=== PATIENT | female | born 1970 | race Caucasian/White ===

== ENCOUNTER 2017-05-26 17:13 | Inpatient (IN) | payer OTHER ==
[2017-05-26 17:58] VITALS: BMI 37.8
--- NOTE | 2017-05-26 18:32 | HP ---
Admission ROS S - [facility] Chief Complaint: I WANT TO GO TO REHAB Allergies/Adverse Reactions: Allergies Allergy/AdvReac Type Severity Reaction Status Date / Time No Known Allergies Allergy Verified 05/26/17 17:44 History of Present Illness: 46 YEARS OLD FEMALE WITH LONG HISTORY OF OPIATE MARIJUANA NICOTINE DEPENDENCE HAS HIV AND POSITIVE PPD TREATED IS ADMITTED TO REHAB Exam Limitations: No Limitations - Ebola screening Have you traveled outside of the country in the last 21 days: No Have you had contact with anyone from an Ebola affected area: No Have you been sick,other than usual withdrawal symptoms: No Do you have a fever: No - Review of Systems Constitutional: Weight Stable EENT: reports: No Symptoms Reported Respiratory: reports: No Symptoms reported Cardiac: reports: No Symptoms Reported GI: reports: No Symptoms Reported : reports: No Symptoms Reported Musculoskeletal: reports: No Symptoms Reported Integumentary: reports: Change in Color (BOTH LEGS IV OPIATE) Neuro: reports: No Symptoms reported Endocrine: reports: No Symptoms Reported Hematology: reports: No Symptoms Reported Psychiatric: reports: Judgement Intact, Mood/Affect Appropiate, Orientated x3 Other Systems: Reviewed and Negative Patient History - Patient Medical History Hx Anemia: No Hx Asthma: No Hx Chronic Obstructive Pulmonary Disease (COPD): No Hx Cancer: No Hx Cardiac Disorders: No Hx Congestive Heart Failure: No Hx Hypertension: No Hx Hypercholesterolemia: No Hx Pacemaker: No HX Cerebrovascular Accident: No Hx Seizures: No Hx Dementia: No Hx Diabetes: No Hx Gastrointestinal Disorders: No Hx Liver Disease: No Hx Genitourinary Disorders: No Hx Sexually Transmitted Disorders: Yes Hx Renal Disease (ESRD): No Hx Thyroid Disease: No Hx Human Immunodeficiency Virus (HIV): Yes Hx Hepatitis C: Yes Hx Depression: Yes Hx Suicide Attempt: Yes (26 YEARS OLD CUTSELF) Hx Bipolar Disorder: No Hx Schizophrenia: No - Patient Surgical History Past Surgical History: Yes Hx Neurologic Surgery: No Hx Cataract Extraction: No Hx Cardiac Surgery: No Hx Lung Surgery: No Hx Breast Surgery: No Hx Breast Biopsy: No Hx Abdominal Surgery: No Hx Appendectomy: No Hx Cholecystectomy: No Hx Genitourinary Surgery: No Hx Section: No Hx Orthopedic Surgery: No Hx Hysterectomy: No Other Surgical History: LEFT OVARY REMOVED 1990/[facility]VP LESION REMOVAL ANUS 03/2017 Anesthesia Reaction: No - PPD History Previous Implant?: Yes Documented Results: Positive w/proof Implanted On Prior R Admission?: No PPD to be Administered?: No - Reproductive History Patient is a Female of Child Bearing Age (11 -55 yrs old): Yes Last Menstrual Period: 05/26/93 Patient : No - Smoking Cessation Smoking history: Current every day smoker Have you smoked in the past 12 months: Yes Aproximately how many cigarettes per day: 4 Cigars Per Day: 0 Hx Chewing Tobacco Use: No Initiated information on smoking cessation: Yes 'Breaking Loose' booklet given: 05/26/17 - Substance & Tx. History Hx Alcohol Use: No Hx Substance Use: Yes Substance Use Type: Marijuana, Opiates Hx Substance Use Treatment: Yes (2006) - Substances Abused Marijuana/Hashish Route: Smoking Frequency: 1-2 times per week Amount used: 1 BAG Age of first use: 9 Date of Last Use: 05/19/17 Heroin Route: Injection Frequency: Daily Amount used: 1 BAG Age of first use: 9 Date of Last Use: 05/25/17 Family Disease History - Family Disease History Family Disease History: Other: Father ( NO CONTACT), Mother (HIV ) Other Family History: ONLY CHILD Admission Physical Exam S - Vital Signs Vital Signs: Vital Signs - 24 hr 05/26/17 17:53 Temperature 97.5 F L Pulse Rate 70 Respiratory 20 Rate Blood Pressure 127/70 - Physical General Appearance: Yes: No Apparent Distress, Appropriately Dressed, Obese HEENTM: Yes: Hearing grossly Normal, Normal ENT Inspection, Normocephalic, Normal Voice Respiratory: Yes: Chest Non-Tender, Lungs Clear, Normal Breath Sounds, No Respiratory Distress, No Accessory Muscle Use Neck: Yes: Supple, Trachea in good position Breast: Yes: Breasts Symetrical Cardiology: Yes: Regular Rhythm, Regular Rate, S1, S2 Abdominal: Yes: Normal Bowel Sounds, Non Tender, Soft Genitourinary: Yes: Within Normal Limits Back: Yes: Normal Inspection Musculoskeletal: Yes: full range of Motion, Gait Steady Extremities: Yes: Normal Range of Motion, Non-Tender, Other (IV OPIATE BOTH LEGS ) Neurological: Yes: Fully Oriented, Alert, Motor Strength 5/5, Normal Mood/Affect , Normal Response Integumentary: Yes: Warm, Track [place] Lymphatic: Yes: Within Normal Limits - Diagnostic (1) Cannabis dependence, uncomplicated Current Visit: Yes Status: Acute (2) HIV (human immunodeficiency virus infection) Current Visit: Yes Status: Chronic (3) Methadone maintenance therapy patient Current Visit: Yes Status: Chronic Comment: 50 MG VERIFICATION PENDING (4) Nicotine dependence Current Visit: Yes Status: Acute Qualifiers: Nicotine product type: cigarettes Substance use status: in withdrawal Qualified Code(s): F17.213 - Nicotine dependence, cigarettes, with withdrawal (5) Positive PPD, treated Current Visit: Yes Status: Resolved (6) Hepatitis C carrier Current Visit: Yes Status: Resolved Cleared for Admission [facility] - Detox or Rehab [facility] Level of Care: Observation Bed Detox Regimen/Protocol: Not Applicable Claeared for Rehab Admission: Yes [facility] Breath Alcohol Content Breath Alcohol Content: 0 Urine Pregancy Test - Result Urine Test Results: Negative- NO Line Present Urine Drug Screen - Results Drug Screen Negative: No Urine Drug Screen Results: THC-Marijuana, OPI-Opiates, MTD-Methadone
[2017-05-26] MEDS ORDERED: MAGNESIUM CITRATE 300 ML BOTTLE PO PRN (18:37)
[2017-05-26] MEDS ORDERED: ACETAMINOPHEN 325 MG TABLET (FP) PO PRN (18:37)
[2017-05-26] MEDS ORDERED: MENTHOL/PHENOL 1 EACH UD MM PRN (18:37)
[2017-05-26] MEDS ORDERED: diphenhydrAMINE HCL 50 MG CAPSULE PO PRN (18:37)
[2017-05-26] MEDS ORDERED: guaiFENesin/D-METHORPHAN HB 10 ML UNIT-DOSE CUPS PO PRN (18:37)
[2017-05-26] MEDS ORDERED: LOPERAMIDE HCL 2 MG CAPSULE PO PRN (18:37)
[2017-05-26] MEDS ORDERED: MAG HYDROX/AL HYDROX/SIMETH 30 ML UNIT-DOSE CUP PO PRN (18:37)
[2017-05-26] MEDS ORDERED: NICOTINE POLACRILEX 2 MG GUM BC PRN (18:37)
[2017-05-26] MEDS ORDERED: P-EPHED 60MG/TRIPROLIDI 2.5MG TABLET PO PRN (18:37)
[2017-05-26] MEDS: THIAMINE HCL 100 MG TABLET (FP) PO SCH (22:45)
[2017-05-27] MEDS ORDERED: METHADONE HCL 40 MG DISPERSABLE TABLET PO SCH (07:45)
[2017-05-27] MEDS ORDERED: METHADONE HCL 10 MG TABLET PO ONE (08:25)
--- NOTE | 2017-05-27 09:05 | EKG ---
Test Reason : Blood Pressure : / mmHG Vent. Rate : 071 BPM Atrial Rate : 071 BPM P-R Int : 124 ms QRS Dur : 082 ms QT Int : 422 ms P-R-T Axes : 076 058 055 degrees QTc Int : 458 ms NORMAL SINUS RHYTHM NORMAL ECG NO PREVIOUS ECGS AVAILABLE Confirmed by MARIETTA RENEE MD ([id number]) on 05/27/2017 9:05:29 AM Referred By: Confirmed By:MARIETTA RENEE MD
[2017-05-27] MEDS ORDERED: METHADONE HCL 5 MG TABLET ONE (09:30)
[2017-05-27] MEDS ORDERED: METHADONE 40 MG, METHADONE 15 MG PO ONE (09:30)
[2017-05-27] MEDS ORDERED: METHADONE HCL 40 MG DISPERSABLE TABLET ONE (09:30)
[2017-05-27 09:47] LABS: MCH 30.5 pg (25.7-33.7); MCHC 33.1 g/dl (32.0-36.0); MEAN CELL VOLUME 92.2 fl (80-96); MEAN PLT VOLUME 10.4 fl (7.5-11.1); PLATELET COUNT 79 K/MM3 (134-434); RDW 13.1 % (11.6-15.6); WHITE BLOOD COUNT 4.2 K/mm3 (4.0-10.0)
[2017-05-27] MEDS: PRENATAL VITAMINS W/ FOLIC ACID TABLET (FP) PO SCH (10:14)
[2017-05-27] MEDS: NICOTINE 14 MG/24 HOURS TOPICAL PATCH TD SCH (10:16)
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
[2017-05-27 10:48] LABS: ALBUMIN 3.2 g/dl (3.4-5.0); ANION GAP 5 (8-16); CO2 32 mmol/L (21-32); CREATININE 0.7 mg/dL (0.55-1.02); GLUCOSE,RANDOM 85 mg/dL (74-106); SGOT/AST 50 U/L (15-37); SGPT/ALT 63 U/L (12-78)
[2017-05-27 10:50] LABS: ALK PHOS 129 U/L (45-117); BILIRUBIN,TOTAL 0.6 mg/dL (0.2-1.0); TOT PROT 7.7 g/dl (6.4-8.2)
[2017-05-27] MEDS: RITONAVIR 100 MG TABLET PO SCH (12:22)
[2017-05-27] MEDS: EMTRICITABINE 200MG/TENOFOVIR 300MG PO SCH (12:22)
[2017-05-27] MEDS: ATAZANAVIR SO4 300 MG CAPSULE PO SCH (12:23)
[2017-05-27 17:50] LABS: URINE APPEARANCE SLCLOUDY; URINE BILIRUBIN NEGATIVE (NEGATIVE); URINE BLOOD NEGATIVE (NEGATIVE); URINE COLOR YELLOW; URINE GLUCOSE (UA) NEGATIVE (NEGATIVE); URINE KETONE NEGATIVE (NEGATIVE); URINE LEUK ESTERASE TRACE (NEGATIVE); URINE NITRITE NEGATIVE (NEGATIVE); URINE PROTEIN NEGATIVE (NEGATIVE)
[2017-05-27 17:58] LABS: URINE BACTERIA FEW /hpf (NONE SEEN); URINE HYALINE CAST 5 /lpf; URINE MUCUS RARE; URINE RBC 3 /hpf (0-3); URINE WBC 6 /hpf (3-5)
[2017-05-27] MEDS: THIAMINE HCL 100 MG TABLET (FP) PO SCH (21:25)
[2017-05-27] MEDS: MIRTAZAPINE 30 MG TABLET (FP) PO SCH (21:26)
[2017-05-28] MEDS ORDERED: METHADONE HCL 40 MG DISPERSABLE TABLET ONE (06:18)
[2017-05-28] MEDS ORDERED: METHADONE HCL 5 MG TABLET ONE (06:18)
[2017-05-28] MEDS: METHADONE 40 MG, METHADONE 15 MG PO SCH (06:26)
[2017-05-28] MEDS: RITONAVIR 100 MG TABLET PO SCH (08:04)
[2017-05-28] MEDS: EMTRICITABINE 200MG/TENOFOVIR 300MG PO SCH (08:04)
[2017-05-28] MEDS: ATAZANAVIR SO4 300 MG CAPSULE PO SCH (08:05)
[2017-05-28] MEDS: PRENATAL VITAMINS W/ FOLIC ACID TABLET (FP) PO SCH (09:42)
[2017-05-28] MEDS: NICOTINE 14 MG/24 HOURS TOPICAL PATCH TD SCH (09:42)
[2017-05-28] MEDS: MAGNESIUM HYDROX 2400MG/30ML ORAL SUSPENSION 30 ML CUP PO PRN (17:08)
[2017-05-28] MEDS: IBUPROFEN 400 MG TABLET (FP) PO PRN (17:09)
[2017-05-28] MEDS: THIAMINE HCL 100 MG TABLET (FP) PO SCH (21:22)
[2017-05-28] MEDS: MIRTAZAPINE 30 MG TABLET (FP) PO SCH (21:22)
[2017-05-29] MEDS ORDERED: METHADONE HCL 5 MG TABLET ONE (03:12)
[2017-05-29] MEDS ORDERED: METHADONE HCL 40 MG DISPERSABLE TABLET ONE (03:13)
[2017-05-29] MEDS: METHADONE 40 MG, METHADONE 15 MG PO SCH (06:17)
[2017-05-29] MEDS: EMTRICITABINE 200MG/TENOFOVIR 300MG PO SCH (07:50)
[2017-05-29] MEDS: ATAZANAVIR SO4 300 MG CAPSULE PO SCH (07:50)
[2017-05-29] MEDS: RITONAVIR 100 MG TABLET PO SCH (07:50)
[2017-05-29] MEDS ORDERED: PT OWN MED DRAWER 7, Y5N ONE (07:51)
[2017-05-29] MEDS: PRENATAL VITAMINS W/ FOLIC ACID TABLET (FP) PO SCH (09:51)
[2017-05-29] MEDS: NICOTINE 14 MG/24 HOURS TOPICAL PATCH TD SCH (09:51)
[2017-05-29] MEDS: THIAMINE HCL 100 MG TABLET (FP) PO SCH (21:16)
[2017-05-29] MEDS: MIRTAZAPINE 30 MG TABLET (FP) PO SCH (21:16)
[2017-05-30] MEDS ORDERED: METHADONE HCL 10 MG TABLET ONE (03:24)
[2017-05-30] MEDS ORDERED: METHADONE HCL 5 MG TABLET ONE (03:24)
[2017-05-30] MEDS ORDERED: METHADONE HCL 40 MG DISPERSABLE TABLET ONE (03:24)
[2017-05-30] MEDS: METHADONE PO SCH (06:29)
[2017-05-30] MEDS: ATAZANAVIR SO4 300 MG CAPSULE PO SCH (07:51)
[2017-05-30] MEDS: RITONAVIR 100 MG TABLET PO SCH (07:51)
[2017-05-30] MEDS: EMTRICITABINE 200MG/TENOFOVIR 300MG PO SCH (07:51)
[2017-05-30] MEDS: NICOTINE 14 MG/24 HOURS TOPICAL PATCH TD SCH (10:16)
[2017-05-30] MEDS: PRENATAL VITAMINS W/ FOLIC ACID TABLET (FP) PO SCH (10:16)
[2017-05-30] MEDS: DOCUSATE SODIUM 100 MG CAPSULE (FP) PO SCH ×2 (16:23→21:22)
[2017-05-30] MEDS: HYDROCORTISONE 1% TOPICAL CREAM 30 GM TUBE TP SCH ×3 (16:23→21:24)
[2017-05-30] MEDS: MIRTAZAPINE 30 MG TABLET (FP) PO SCH (21:22)
[2017-05-30] MEDS: THIAMINE HCL 100 MG TABLET (FP) PO SCH (21:22)
[2017-05-31] MEDS ORDERED: METHADONE HCL 5 MG TABLET ONE (05:55)
[2017-05-31] MEDS ORDERED: METHADONE HCL 40 MG DISPERSABLE TABLET ONE (05:56)
[2017-05-31] MEDS ORDERED: METHADONE HCL 10 MG TABLET ONE (05:56)
[2017-05-31] MEDS ORDERED: PT OWN MED DRAWER 7, Y5N ONE ×3 (05:57→13:23)
[2017-05-31] MEDS: METHADONE PO SCH (06:42)
[2017-05-31] MEDS: DOCUSATE SODIUM 100 MG CAPSULE (FP) PO SCH ×3 (06:43→21:21)
[2017-05-31] MEDS: RITONAVIR 100 MG TABLET PO SCH (08:26)
[2017-05-31] MEDS: EMTRICITABINE 200MG/TENOFOVIR 300MG PO SCH (08:26)
[2017-05-31] MEDS: ATAZANAVIR SO4 300 MG CAPSULE PO SCH (08:26)
[2017-05-31] MEDS: NICOTINE 14 MG/24 HOURS TOPICAL PATCH TD SCH (10:13)
[2017-05-31] MEDS: PRENATAL VITAMINS W/ FOLIC ACID TABLET (FP) PO SCH (10:13)
[2017-05-31] MEDS: HYDROCORTISONE 1% TOPICAL CREAM 30 GM TUBE TP SCH ×4 (10:14→21:21)
[2017-05-31] MEDS: MIRTAZAPINE 30 MG TABLET (FP) PO SCH (21:21)
[2017-05-31] MEDS: THIAMINE HCL 100 MG TABLET (FP) PO SCH (21:21)
[2017-06-01] MEDS ORDERED: METHADONE HCL 10 MG TABLET ONE (03:31)
[2017-06-01] MEDS ORDERED: METHADONE HCL 5 MG TABLET ONE (03:31)
[2017-06-01] MEDS ORDERED: METHADONE HCL 40 MG DISPERSABLE TABLET ONE (03:31)
[2017-06-01] MEDS: DOCUSATE SODIUM 100 MG CAPSULE (FP) PO SCH ×3 (06:30→21:20)
[2017-06-01] MEDS: METHADONE PO SCH (06:30)
[2017-06-01] MEDS: RITONAVIR 100 MG TABLET PO SCH (07:52)
[2017-06-01] MEDS: EMTRICITABINE 200MG/TENOFOVIR 300MG PO SCH (07:52)
[2017-06-01] MEDS: ATAZANAVIR SO4 300 MG CAPSULE PO SCH (07:52)
[2017-06-01] MEDS: PRENATAL VITAMINS W/ FOLIC ACID TABLET (FP) PO SCH (09:59)
[2017-06-01] MEDS: NICOTINE 14 MG/24 HOURS TOPICAL PATCH TD SCH (09:59)
[2017-06-01] MEDS: HYDROCORTISONE 1% TOPICAL CREAM 30 GM TUBE TP SCH ×4 (09:59→21:22)
[2017-06-01] MEDS: MIRTAZAPINE 30 MG TABLET (FP) PO SCH (21:20)
[2017-06-01] MEDS: THIAMINE HCL 100 MG TABLET (FP) PO SCH (21:20)
[2017-06-02] MEDS ORDERED: METHADONE HCL 10 MG TABLET ONE (03:19)
[2017-06-02] MEDS ORDERED: METHADONE HCL 40 MG DISPERSABLE TABLET ONE (03:19)
[2017-06-02] MEDS ORDERED: METHADONE HCL 5 MG TABLET ONE (03:19)
[2017-06-02] MEDS: DOCUSATE SODIUM 100 MG CAPSULE (FP) PO SCH ×3 (06:28→21:22)
[2017-06-02] MEDS: METHADONE PO SCH (06:28)
[2017-06-02] MEDS: EMTRICITABINE 200MG/TENOFOVIR 300MG PO SCH (07:53)
[2017-06-02] MEDS: ATAZANAVIR SO4 300 MG CAPSULE PO SCH (07:53)
[2017-06-02] MEDS: RITONAVIR 100 MG TABLET PO SCH (07:53)
[2017-06-02] MEDS ORDERED: PT OWN MED DRAWER 7, Y5N ONE ×2 (07:55→13:24)
[2017-06-02] MEDS: PRENATAL VITAMINS W/ FOLIC ACID TABLET (FP) PO SCH (10:35)
[2017-06-02] MEDS: HYDROCORTISONE 1% TOPICAL CREAM 30 GM TUBE TP SCH ×4 (10:35→21:23)
[2017-06-02] MEDS: NICOTINE 14 MG/24 HOURS TOPICAL PATCH TD SCH (10:35)
[2017-06-02] MEDS: MIRTAZAPINE 30 MG TABLET (FP) PO SCH (21:22)
[2017-06-02] MEDS: THIAMINE HCL 100 MG TABLET (FP) PO SCH (21:22)
[2017-06-02] MEDS: IBUPROFEN 400 MG TABLET (FP) PO PRN (22:14)
[2017-06-03] MEDS ORDERED: METHADONE HCL 5 MG TABLET ONE (03:27)
[2017-06-03] MEDS ORDERED: METHADONE HCL 10 MG TABLET ONE (03:27)
[2017-06-03] MEDS ORDERED: METHADONE HCL 40 MG DISPERSABLE TABLET ONE (03:28)
[2017-06-03] MEDS: METHADONE PO SCH (06:16)
[2017-06-03] MEDS: DOCUSATE SODIUM 100 MG CAPSULE (FP) PO SCH ×3 (06:17→21:42)
[2017-06-03] MEDS: RITONAVIR 100 MG TABLET PO SCH (07:41)
[2017-06-03] MEDS: EMTRICITABINE 200MG/TENOFOVIR 300MG PO SCH (07:41)
[2017-06-03] MEDS: ATAZANAVIR SO4 300 MG CAPSULE PO SCH (07:41)
[2017-06-03] MEDS ORDERED: PT OWN MED DRAWER 7, Y5N ONE ×3 (07:53→19:42)
[2017-06-03] MEDS: PRENATAL VITAMINS W/ FOLIC ACID TABLET (FP) PO SCH (10:13)
[2017-06-03] MEDS: NICOTINE 14 MG/24 HOURS TOPICAL PATCH TD SCH (10:14)
[2017-06-03] MEDS: IBUPROFEN 400 MG TABLET (FP) PO PRN ×2 (10:15→21:43)
[2017-06-03] MEDS: HYDROCORTISONE 1% TOPICAL CREAM 30 GM TUBE TP SCH ×4 (10:15→21:42)
[2017-06-03] MEDS: THIAMINE HCL 100 MG TABLET (FP) PO SCH (21:42)
[2017-06-03] MEDS: MIRTAZAPINE 30 MG TABLET (FP) PO SCH (21:42)
[2017-06-04] MEDS ORDERED: METHADONE HCL 5 MG TABLET ONE (05:56)
[2017-06-04] MEDS ORDERED: METHADONE HCL 40 MG DISPERSABLE TABLET ONE (05:57)
[2017-06-04] MEDS ORDERED: PT OWN MED DRAWER 7, Y5N ONE ×2 (05:57→08:49)
[2017-06-04] MEDS ORDERED: METHADONE HCL 10 MG TABLET ONE (05:57)
[2017-06-04] MEDS: METHADONE PO SCH (06:32)
[2017-06-04] MEDS: DOCUSATE SODIUM 100 MG CAPSULE (FP) PO SCH ×3 (06:32→21:20)
[2017-06-04] MEDS: EMTRICITABINE 200MG/TENOFOVIR 300MG PO SCH (08:30)
[2017-06-04] MEDS: RITONAVIR 100 MG TABLET PO SCH (08:30)
[2017-06-04] MEDS: ATAZANAVIR SO4 300 MG CAPSULE PO SCH (08:30)
[2017-06-04] MEDS: NICOTINE 14 MG/24 HOURS TOPICAL PATCH TD SCH (09:56)
[2017-06-04] MEDS: PRENATAL VITAMINS W/ FOLIC ACID TABLET (FP) PO SCH (09:56)
[2017-06-04] MEDS: HYDROCORTISONE 1% TOPICAL CREAM 30 GM TUBE TP SCH ×4 (09:57→21:21)
[2017-06-04] MEDS: THIAMINE HCL 100 MG TABLET (FP) PO SCH (21:20)
[2017-06-04] MEDS: MIRTAZAPINE 30 MG TABLET (FP) PO SCH (21:20)
[2017-06-05] MEDS ORDERED: METHADONE HCL 10 MG TABLET ONE (05:54)
[2017-06-05] MEDS ORDERED: METHADONE HCL 5 MG TABLET ONE (05:54)
[2017-06-05] MEDS ORDERED: METHADONE HCL 40 MG DISPERSABLE TABLET ONE (05:55)
[2017-06-05] MEDS: DOCUSATE SODIUM 100 MG CAPSULE (FP) PO SCH ×3 (06:40→21:26)
[2017-06-05] MEDS: METHADONE PO SCH (06:40)
[2017-06-05] MEDS: ATAZANAVIR SO4 300 MG CAPSULE PO SCH (07:03)
[2017-06-05] MEDS: RITONAVIR 100 MG TABLET PO SCH (07:03)
[2017-06-05] MEDS: EMTRICITABINE 200MG/TENOFOVIR 300MG PO SCH (07:03)
[2017-06-05] MEDS ORDERED: PT OWN MED DRAWER 7, Y5N ONE ×2 (08:42→12:19)
[2017-06-05] MEDS: PRENATAL VITAMINS W/ FOLIC ACID TABLET (FP) PO SCH (09:45)
[2017-06-05] MEDS: NICOTINE 14 MG/24 HOURS TOPICAL PATCH TD SCH (09:46)
[2017-06-05] MEDS: HYDROCORTISONE 1% TOPICAL CREAM 30 GM TUBE TP SCH ×4 (09:46→21:27)
[2017-06-05] MEDS: IBUPROFEN 400 MG TABLET (FP) PO PRN ×2 (13:04→18:54)
[2017-06-05] MEDS: MIRTAZAPINE 30 MG TABLET (FP) PO SCH (21:26)
[2017-06-05] MEDS: THIAMINE HCL 100 MG TABLET (FP) PO SCH (21:26)
[2017-06-06] MEDS ORDERED: METHADONE HCL 5 MG TABLET ONE (03:32)
[2017-06-06] MEDS ORDERED: METHADONE HCL 10 MG TABLET ONE (03:33)
[2017-06-06] MEDS ORDERED: METHADONE HCL 40 MG DISPERSABLE TABLET ONE (03:33)
[2017-06-06] MEDS: METHADONE PO SCH (06:43)
[2017-06-06] MEDS: DOCUSATE SODIUM 100 MG CAPSULE (FP) PO SCH ×3 (06:43→21:28)
[2017-06-06] MEDS: ATAZANAVIR SO4 300 MG CAPSULE PO SCH (07:50)
[2017-06-06] MEDS: EMTRICITABINE 200MG/TENOFOVIR 300MG PO SCH (07:50)
[2017-06-06] MEDS: RITONAVIR 100 MG TABLET PO SCH (07:50)
[2017-06-06] MEDS: PRENATAL VITAMINS W/ FOLIC ACID TABLET (FP) PO SCH (09:59)
[2017-06-06] MEDS: NICOTINE 14 MG/24 HOURS TOPICAL PATCH TD SCH (09:59)
[2017-06-06] MEDS: HYDROCORTISONE 1% TOPICAL CREAM 30 GM TUBE TP SCH ×4 (10:00→21:29)
[2017-06-06] MEDS ORDERED: PT OWN MED DRAWER 7, Y5N ONE (13:03)
[2017-06-06] MEDS: MIRTAZAPINE 30 MG TABLET (FP) PO SCH (21:28)
[2017-06-06] MEDS: THIAMINE HCL 100 MG TABLET (FP) PO SCH (21:29)
[2017-06-07] MEDS ORDERED: METHADONE HCL 5 MG TABLET ONE (03:20)
[2017-06-07] MEDS ORDERED: METHADONE HCL 40 MG DISPERSABLE TABLET ONE (03:21)
[2017-06-07] MEDS ORDERED: METHADONE HCL 10 MG TABLET ONE (03:21)
[2017-06-07] MEDS: DOCUSATE SODIUM 100 MG CAPSULE (FP) PO SCH ×3 (06:25→21:25)
[2017-06-07] MEDS: METHADONE PO SCH (06:25)
[2017-06-07] MEDS: EMTRICITABINE 200MG/TENOFOVIR 300MG PO SCH (08:29)
[2017-06-07] MEDS: RITONAVIR 100 MG TABLET PO SCH (08:29)
[2017-06-07] MEDS: ATAZANAVIR SO4 300 MG CAPSULE PO SCH (08:29)
[2017-06-07] MEDS: HYDROCORTISONE 1% TOPICAL CREAM 30 GM TUBE TP SCH ×4 (09:58→21:24)
[2017-06-07] MEDS: PRENATAL VITAMINS W/ FOLIC ACID TABLET (FP) PO SCH (09:58)
[2017-06-07] MEDS: NICOTINE 14 MG/24 HOURS TOPICAL PATCH TD SCH (09:58)
--- NOTE | 2017-06-07 10:35 | PN ---
[facility] Progress Note Note: c/o lower abdominal pain, she's on Methadone 50mg/d R/O fecal impaction KUB
[2017-06-07] MEDS: IBUPROFEN 400 MG TABLET (FP) PO PRN ×2 (13:08→21:27)
[2017-06-07] MEDS: COLLOIDAL OATMEAL 1 BAR EACH TP PRN (14:46)
[2017-06-07] MEDS: MAGNESIUM HYDROX 2400MG/30ML ORAL SUSPENSION 30 ML CUP PO PRN (14:47)
[2017-06-07] MEDS: THIAMINE HCL 100 MG TABLET (FP) PO SCH (21:24)
[2017-06-07] MEDS: MIRTAZAPINE 30 MG TABLET (FP) PO SCH (21:25)
[2017-06-08] MEDS ORDERED: METHADONE HCL 10 MG TABLET ONE (03:31)
[2017-06-08] MEDS ORDERED: METHADONE HCL 40 MG DISPERSABLE TABLET ONE (03:31)
[2017-06-08] MEDS ORDERED: METHADONE HCL 5 MG TABLET ONE (03:31)
[2017-06-08] MEDS: DOCUSATE SODIUM 100 MG CAPSULE (FP) PO SCH ×3 (06:38→21:25)
[2017-06-08] MEDS: METHADONE PO SCH (06:38)
[2017-06-08] MEDS: EMTRICITABINE 200MG/TENOFOVIR 300MG PO SCH (07:59)
[2017-06-08] MEDS: RITONAVIR 100 MG TABLET PO SCH (07:59)
[2017-06-08] MEDS: ATAZANAVIR SO4 300 MG CAPSULE PO SCH (08:00)
[2017-06-08] MEDS: NICOTINE 14 MG/24 HOURS TOPICAL PATCH TD SCH (10:01)
[2017-06-08] MEDS: HYDROCORTISONE 1% TOPICAL CREAM 30 GM TUBE TP SCH ×4 (10:01→21:26)
[2017-06-08] MEDS: PRENATAL VITAMINS W/ FOLIC ACID TABLET (FP) PO SCH (10:02)
[2017-06-08 17:19] LABS: URINE APPEARANCE SLCLOUDY; URINE BILIRUBIN NEGATIVE (NEGATIVE); URINE BLOOD NEGATIVE (NEGATIVE); URINE COLOR YELLOW; URINE GLUCOSE (UA) NEGATIVE (NEGATIVE); URINE KETONE NEGATIVE (NEGATIVE); URINE LEUK ESTERASE NEGATIVE (NEGATIVE); URINE NITRITE NEGATIVE (NEGATIVE); URINE PROTEIN NEGATIVE (NEGATIVE); URINE UROBILINOGEN NEGATIVE mg/dL (0.2-1.0)
[2017-06-08] MEDS: MIRTAZAPINE 30 MG TABLET (FP) PO SCH (21:25)
[2017-06-08] MEDS: THIAMINE HCL 100 MG TABLET (FP) PO SCH (21:25)
[2017-06-09] MEDS ORDERED: METHADONE HCL 5 MG TABLET ONE (03:20)
[2017-06-09] MEDS ORDERED: METHADONE HCL 40 MG DISPERSABLE TABLET ONE (03:21)
[2017-06-09] MEDS ORDERED: METHADONE HCL 10 MG TABLET ONE (03:21)
[2017-06-09] MEDS: METHADONE PO SCH (06:16)
[2017-06-09] MEDS: DOCUSATE SODIUM 100 MG CAPSULE (FP) PO SCH ×3 (06:17→21:31)
[2017-06-09] MEDS: ATAZANAVIR SO4 300 MG CAPSULE PO SCH (07:54)
[2017-06-09] MEDS: EMTRICITABINE 200MG/TENOFOVIR 300MG PO SCH (07:54)
[2017-06-09] MEDS: RITONAVIR 100 MG TABLET PO SCH (07:54)
[2017-06-09] MEDS ORDERED: PT OWN MED DRAWER 7, Y5N ONE (08:43)
[2017-06-09] MEDS: NICOTINE 14 MG/24 HOURS TOPICAL PATCH TD SCH (09:58)
[2017-06-09] MEDS: HYDROCORTISONE 1% TOPICAL CREAM 30 GM TUBE TP SCH ×4 (09:58→21:32)
[2017-06-09] MEDS: PRENATAL VITAMINS W/ FOLIC ACID TABLET (FP) PO SCH (09:58)
[2017-06-09] MEDS: MIRTAZAPINE 30 MG TABLET (FP) PO SCH (21:31)
[2017-06-09] MEDS: THIAMINE HCL 100 MG TABLET (FP) PO SCH (21:32)
[2017-06-10] MEDS ORDERED: METHADONE HCL 5 MG TABLET ONE (05:59)
[2017-06-10] MEDS ORDERED: METHADONE HCL 10 MG TABLET ONE (05:59)
[2017-06-10] MEDS ORDERED: METHADONE HCL 40 MG DISPERSABLE TABLET ONE (06:00)
[2017-06-10] MEDS ORDERED: PT OWN MED DRAWER 7, Y5N ONE ×2 (06:00→08:38)
[2017-06-10] MEDS: METHADONE PO SCH (07:21)
[2017-06-10] MEDS: RITONAVIR 100 MG TABLET PO SCH (07:22)
[2017-06-10] MEDS: DOCUSATE SODIUM 100 MG CAPSULE (FP) PO SCH ×3 (07:22→21:28)
[2017-06-10] MEDS: EMTRICITABINE 200MG/TENOFOVIR 300MG PO SCH (07:22)
[2017-06-10] MEDS: ATAZANAVIR SO4 300 MG CAPSULE PO SCH (07:22)
[2017-06-10] MEDS: HYDROCORTISONE 1% TOPICAL CREAM 30 GM TUBE TP SCH ×5 (10:01→21:29)
[2017-06-10] MEDS: PRENATAL VITAMINS W/ FOLIC ACID TABLET (FP) PO SCH (10:01)
[2017-06-10] MEDS: NICOTINE 14 MG/24 HOURS TOPICAL PATCH TD SCH (10:01)
[2017-06-10] MEDS: THIAMINE HCL 100 MG TABLET (FP) PO SCH (21:28)
[2017-06-10] MEDS: MIRTAZAPINE 30 MG TABLET (FP) PO SCH (21:28)
[2017-06-11] MEDS ORDERED: METHADONE HCL 5 MG TABLET ONE (03:07)
[2017-06-11] MEDS ORDERED: METHADONE HCL 10 MG TABLET ONE (03:07)
[2017-06-11] MEDS ORDERED: METHADONE HCL 40 MG DISPERSABLE TABLET ONE (03:08)
[2017-06-11] MEDS: DOCUSATE SODIUM 100 MG CAPSULE (FP) PO SCH ×3 (06:31→21:26)
[2017-06-11] MEDS: METHADONE PO SCH (06:31)
[2017-06-11] MEDS: RITONAVIR 100 MG TABLET PO SCH (07:19)
[2017-06-11] MEDS: EMTRICITABINE 200MG/TENOFOVIR 300MG PO SCH (07:19)
[2017-06-11] MEDS: ATAZANAVIR SO4 300 MG CAPSULE PO SCH (07:19)
[2017-06-11] MEDS: NICOTINE 14 MG/24 HOURS TOPICAL PATCH TD SCH (09:45)
[2017-06-11] MEDS: HYDROCORTISONE 1% TOPICAL CREAM 30 GM TUBE TP SCH ×4 (09:45→21:26)
[2017-06-11] MEDS: PRENATAL VITAMINS W/ FOLIC ACID TABLET (FP) PO SCH (09:45)
[2017-06-11] MEDS ORDERED: PT OWN MED DRAWER 7, Y5N ONE (19:20)
[2017-06-11] MEDS: MIRTAZAPINE 30 MG TABLET (FP) PO SCH (21:25)
[2017-06-11] MEDS: THIAMINE HCL 100 MG TABLET (FP) PO SCH (21:26)
[2017-06-12] MEDS ORDERED: METHADONE HCL 5 MG TABLET ONE (03:10)
[2017-06-12] MEDS ORDERED: METHADONE HCL 10 MG TABLET ONE (03:11)
[2017-06-12] MEDS ORDERED: METHADONE HCL 40 MG DISPERSABLE TABLET ONE (03:11)
[2017-06-12] MEDS ORDERED: PT OWN MED DRAWER 7, Y5N ONE ×3 (03:12→19:20)
[2017-06-12] MEDS: METHADONE PO SCH (06:42)
[2017-06-12] MEDS: DOCUSATE SODIUM 100 MG CAPSULE (FP) PO SCH ×3 (06:42→21:37)
[2017-06-12] MEDS: ATAZANAVIR SO4 300 MG CAPSULE PO SCH (07:50)
[2017-06-12] MEDS: EMTRICITABINE 200MG/TENOFOVIR 300MG PO SCH (07:50)
[2017-06-12] MEDS: RITONAVIR 100 MG TABLET PO SCH (07:56)
[2017-06-12] MEDS: HYDROCORTISONE 1% TOPICAL CREAM 30 GM TUBE TP SCH ×4 (10:02→21:36)
[2017-06-12] MEDS: PRENATAL VITAMINS W/ FOLIC ACID TABLET (FP) PO SCH (10:02)
[2017-06-12] MEDS: NICOTINE 14 MG/24 HOURS TOPICAL PATCH TD SCH (10:03)
[2017-06-12] MEDS ORDERED: MIRTAZAPINE 15 MG TABLET (FP) ONE (19:19)
[2017-06-12] MEDS: THIAMINE HCL 100 MG TABLET (FP) PO SCH (21:37)
[2017-06-12] MEDS: MIRTAZAPINE 30 MG TABLET (FP) PO SCH (21:38)
[2017-06-13] MEDS ORDERED: METHADONE HCL 5 MG TABLET ONE (05:48)
[2017-06-13] MEDS ORDERED: METHADONE HCL 40 MG DISPERSABLE TABLET ONE (05:49)
[2017-06-13] MEDS ORDERED: METHADONE HCL 40 MG DISPERSABLE TABLET PO SCH (06:00)
[2017-06-13] MEDS: DOCUSATE SODIUM 100 MG CAPSULE (FP) PO SCH ×3 (06:30→21:41)
[2017-06-13] MEDS: METHADONE 40 MG, METHADONE 15 MG PO SCH (06:30)
[2017-06-13] MEDS: ATAZANAVIR SO4 300 MG CAPSULE PO SCH (07:29)
[2017-06-13] MEDS: RITONAVIR 100 MG TABLET PO SCH (07:30)
[2017-06-13] MEDS: EMTRICITABINE 200MG/TENOFOVIR 300MG PO SCH (07:32)
[2017-06-13] MEDS: NICOTINE 14 MG/24 HOURS TOPICAL PATCH TD SCH (10:20)
[2017-06-13] MEDS: PRENATAL VITAMINS W/ FOLIC ACID TABLET (FP) PO SCH (10:20)
[2017-06-13] MEDS: HYDROCORTISONE 1% TOPICAL CREAM 30 GM TUBE TP SCH ×4 (10:22→22:19)
[2017-06-13] MEDS ORDERED: PT OWN MED DRAWER 7, Y5N ONE (12:51)
[2017-06-13] MEDS: MIRTAZAPINE 30 MG TABLET (FP) PO SCH (21:41)
[2017-06-13] MEDS: THIAMINE HCL 100 MG TABLET (FP) PO SCH (21:41)
[2017-06-14] MEDS ORDERED: METHADONE HCL 5 MG TABLET ONE (05:47)
[2017-06-14] MEDS ORDERED: METHADONE HCL 40 MG DISPERSABLE TABLET ONE (05:48)
[2017-06-14] MEDS: ATAZANAVIR SO4 300 MG CAPSULE PO SCH (07:31)
[2017-06-14] MEDS: METHADONE 40 MG, METHADONE 15 MG PO SCH (07:31)
[2017-06-14] MEDS: DOCUSATE SODIUM 100 MG CAPSULE (FP) PO SCH ×3 (07:31→21:39)
[2017-06-14] MEDS: EMTRICITABINE 200MG/TENOFOVIR 300MG PO SCH (07:31)
[2017-06-14] MEDS: RITONAVIR 100 MG TABLET PO SCH (07:31)
[2017-06-14] MEDS: HYDROCORTISONE 1% TOPICAL CREAM 30 GM TUBE TP SCH ×4 (10:08→21:41)
[2017-06-14] MEDS: PRENATAL VITAMINS W/ FOLIC ACID TABLET (FP) PO SCH (10:08)
[2017-06-14] MEDS: NICOTINE 14 MG/24 HOURS TOPICAL PATCH TD SCH (10:08)
[2017-06-14] MEDS ORDERED: PT OWN MED DRAWER 7, Y5N ONE (12:53)
[2017-06-14] MEDS: MIRTAZAPINE 30 MG TABLET (FP) PO SCH (21:39)
[2017-06-14] MEDS: THIAMINE HCL 100 MG TABLET (FP) PO SCH (21:39)
[2017-06-14] MEDS: COLLOIDAL OATMEAL 1 BAR EACH TP PRN (21:40)
[2017-06-15] MEDS ORDERED: METHADONE HCL 5 MG TABLET ONE (03:18)
[2017-06-15] MEDS ORDERED: METHADONE HCL 40 MG DISPERSABLE TABLET ONE (03:18)
[2017-06-15] MEDS: METHADONE 40 MG, METHADONE 15 MG PO SCH (06:54)
[2017-06-15] MEDS: DOCUSATE SODIUM 100 MG CAPSULE (FP) PO SCH ×3 (06:54→21:35)
[2017-06-15] MEDS: RITONAVIR 100 MG TABLET PO SCH (07:57)
[2017-06-15] MEDS: ATAZANAVIR SO4 300 MG CAPSULE PO SCH (07:57)
[2017-06-15] MEDS: EMTRICITABINE 200MG/TENOFOVIR 300MG PO SCH (07:57)
[2017-06-15] MEDS: NICOTINE 14 MG/24 HOURS TOPICAL PATCH TD SCH (10:34)
[2017-06-15] MEDS: PRENATAL VITAMINS W/ FOLIC ACID TABLET (FP) PO SCH (10:35)
[2017-06-15] MEDS: HYDROCORTISONE 1% TOPICAL CREAM 30 GM TUBE TP SCH ×4 (10:35→21:35)
[2017-06-15] MEDS ORDERED: PT OWN MED DRAWER 7, Y5N ONE (13:15)
[2017-06-15] MEDS: IBUPROFEN 400 MG TABLET (FP) PO PRN (18:53)
[2017-06-15] MEDS: MIRTAZAPINE 30 MG TABLET (FP) PO SCH (21:35)
[2017-06-15] MEDS: THIAMINE HCL 100 MG TABLET (FP) PO SCH (21:35)
[2017-06-16] MEDS ORDERED: METHADONE HCL 5 MG TABLET ONE (03:18)
[2017-06-16] MEDS ORDERED: METHADONE HCL 40 MG DISPERSABLE TABLET ONE (03:19)
[2017-06-16] MEDS ORDERED: PT OWN MED DRAWER 7, Y5N ONE (03:19)
[2017-06-16] MEDS: METHADONE 40 MG, METHADONE 15 MG PO SCH (06:49)
[2017-06-16] MEDS: DOCUSATE SODIUM 100 MG CAPSULE (FP) PO SCH ×3 (06:49→21:29)
[2017-06-16] MEDS: ATAZANAVIR SO4 300 MG CAPSULE PO SCH (07:51)
[2017-06-16] MEDS: EMTRICITABINE 200MG/TENOFOVIR 300MG PO SCH (07:52)
[2017-06-16] MEDS: RITONAVIR 100 MG TABLET PO SCH (07:52)
[2017-06-16] MEDS: NICOTINE 14 MG/24 HOURS TOPICAL PATCH TD SCH (10:18)
[2017-06-16] MEDS: HYDROCORTISONE 1% TOPICAL CREAM 30 GM TUBE TP SCH ×4 (10:19→21:29)
[2017-06-16] MEDS: PRENATAL VITAMINS W/ FOLIC ACID TABLET (FP) PO SCH (10:20)
[2017-06-16] MEDS: THIAMINE HCL 100 MG TABLET (FP) PO SCH (21:29)
[2017-06-16] MEDS: MIRTAZAPINE 30 MG TABLET (FP) PO SCH (21:29)
[2017-06-17] MEDS ORDERED: METHADONE HCL 40 MG DISPERSABLE TABLET ONE (03:37)
[2017-06-17] MEDS ORDERED: METHADONE HCL 5 MG TABLET ONE (03:37)
[2017-06-17] MEDS ORDERED: PT OWN MED DRAWER 7, Y5N ONE ×3 (03:38→19:21)
[2017-06-17] MEDS: DOCUSATE SODIUM 100 MG CAPSULE (FP) PO SCH ×3 (07:19→21:16)
[2017-06-17] MEDS: METHADONE 40 MG, METHADONE 15 MG PO SCH (07:19)
[2017-06-17] MEDS: RITONAVIR 100 MG TABLET PO SCH (07:20)
[2017-06-17] MEDS: EMTRICITABINE 200MG/TENOFOVIR 300MG PO SCH (07:20)
[2017-06-17] MEDS: ATAZANAVIR SO4 300 MG CAPSULE PO SCH (07:21)
[2017-06-17] MEDS: NICOTINE 14 MG/24 HOURS TOPICAL PATCH TD SCH (10:19)
[2017-06-17] MEDS: PRENATAL VITAMINS W/ FOLIC ACID TABLET (FP) PO SCH (10:19)
[2017-06-17] MEDS: HYDROCORTISONE 1% TOPICAL CREAM 30 GM TUBE TP SCH ×4 (10:20→21:15)
[2017-06-17] MEDS: THIAMINE HCL 100 MG TABLET (FP) PO SCH (21:16)
[2017-06-17] MEDS: MIRTAZAPINE 30 MG TABLET (FP) PO SCH (21:16)
[2017-06-18] MEDS ORDERED: METHADONE HCL 5 MG TABLET ONE (05:07)
[2017-06-18] MEDS ORDERED: METHADONE HCL 40 MG DISPERSABLE TABLET ONE (05:08)
[2017-06-18] MEDS: METHADONE 40 MG, METHADONE 15 MG PO SCH (07:58)
[2017-06-18] MEDS: DOCUSATE SODIUM 100 MG CAPSULE (FP) PO SCH ×3 (07:58→21:20)
[2017-06-18] MEDS: EMTRICITABINE 200MG/TENOFOVIR 300MG PO SCH (08:00)
[2017-06-18] MEDS: RITONAVIR 100 MG TABLET PO SCH (08:00)
[2017-06-18] MEDS: ATAZANAVIR SO4 300 MG CAPSULE PO SCH (08:02)
[2017-06-18] MEDS ORDERED: PT OWN MED DRAWER 7, Y5N ONE (08:42)
[2017-06-18] MEDS: NICOTINE 14 MG/24 HOURS TOPICAL PATCH TD SCH (10:01)
[2017-06-18] MEDS: HYDROCORTISONE 1% TOPICAL CREAM 30 GM TUBE TP SCH ×4 (10:01→21:20)
[2017-06-18] MEDS: PRENATAL VITAMINS W/ FOLIC ACID TABLET (FP) PO SCH (10:01)
[2017-06-18] MEDS: MIRTAZAPINE 30 MG TABLET (FP) PO SCH (21:20)
[2017-06-18] MEDS: THIAMINE HCL 100 MG TABLET (FP) PO SCH (21:21)
[2017-06-19] MEDS ORDERED: METHADONE HCL 40 MG DISPERSABLE TABLET ONE (03:10)
[2017-06-19] MEDS ORDERED: PT OWN MED DRAWER 7, Y5N ONE ×2 (03:10→08:34)
[2017-06-19] MEDS ORDERED: METHADONE HCL 5 MG TABLET ONE (03:10)
[2017-06-19] MEDS: DOCUSATE SODIUM 100 MG CAPSULE (FP) PO SCH ×3 (06:46→21:21)
[2017-06-19] MEDS: METHADONE 40 MG, METHADONE 15 MG PO SCH (06:46)
[2017-06-19] MEDS: RITONAVIR 100 MG TABLET PO SCH (07:48)
[2017-06-19] MEDS: ATAZANAVIR SO4 300 MG CAPSULE PO SCH (07:49)
[2017-06-19] MEDS: EMTRICITABINE 200MG/TENOFOVIR 300MG PO SCH (07:49)
[2017-06-19] MEDS: NICOTINE 14 MG/24 HOURS TOPICAL PATCH TD SCH (10:12)
[2017-06-19] MEDS: HYDROCORTISONE 1% TOPICAL CREAM 30 GM TUBE TP SCH ×4 (10:12→21:21)
[2017-06-19] MEDS: PRENATAL VITAMINS W/ FOLIC ACID TABLET (FP) PO SCH (10:12)
[2017-06-19] MEDS: THIAMINE HCL 100 MG TABLET (FP) PO SCH (21:21)
[2017-06-19] MEDS: MIRTAZAPINE 30 MG TABLET (FP) PO SCH (21:21)
[2017-06-20] MEDS ORDERED: METHADONE HCL 5 MG TABLET ONE (02:40)
[2017-06-20] MEDS ORDERED: METHADONE HCL 40 MG DISPERSABLE TABLET ONE (02:41)
[2017-06-20] MEDS: DOCUSATE SODIUM 100 MG CAPSULE (FP) PO SCH ×3 (06:26→21:36)
[2017-06-20] MEDS: METHADONE 40 MG, METHADONE 15 MG PO SCH (06:26)
[2017-06-20] MEDS: EMTRICITABINE 200MG/TENOFOVIR 300MG PO SCH (07:52)
[2017-06-20] MEDS: ATAZANAVIR SO4 300 MG CAPSULE PO SCH (07:52)
[2017-06-20] MEDS: RITONAVIR 100 MG TABLET PO SCH (07:52)
[2017-06-20] MEDS: PRENATAL VITAMINS W/ FOLIC ACID TABLET (FP) PO SCH (10:22)
[2017-06-20] MEDS: NICOTINE 14 MG/24 HOURS TOPICAL PATCH TD SCH (10:22)
[2017-06-20] MEDS: HYDROCORTISONE 1% TOPICAL CREAM 30 GM TUBE TP SCH ×4 (10:22→23:34)
[2017-06-20] MEDS ORDERED: PT OWN MED DRAWER 7, Y5N ONE (18:00)
[2017-06-20] MEDS: THIAMINE HCL 100 MG TABLET (FP) PO SCH (21:36)
[2017-06-20] MEDS: MIRTAZAPINE 30 MG TABLET (FP) PO SCH (21:36)
[2017-06-21] MEDS ORDERED: PT OWN MED DRAWER 7, Y5N ONE (02:56)
[2017-06-21] MEDS ORDERED: METHADONE 40 MG, METHADONE 15 MG PO SCH (06:00)
[2017-06-21] MEDS ORDERED: METHADONE HCL 10 MG TABLET PO SCH (06:00)
[2017-06-21] MEDS ORDERED: METHADONE HCL 10 MG TABLET ONE (06:35)
[2017-06-21] MEDS ORDERED: METHADONE HCL 5 MG TABLET ONE (06:35)
[2017-06-21] MEDS ORDERED: METHADONE HCL 40 MG DISPERSABLE TABLET ONE (06:35)
[2017-06-21] MEDS: METHADONE 40 MG, METHADONE 10 MG, METHADONE 5 MG PO SCH (06:36)
[2017-06-21] MEDS: DOCUSATE SODIUM 100 MG CAPSULE (FP) PO SCH ×3 (06:36→21:21)
[2017-06-21] MEDS: EMTRICITABINE 200MG/TENOFOVIR 300MG PO SCH (07:52)
[2017-06-21] MEDS: ATAZANAVIR SO4 300 MG CAPSULE PO SCH (07:52)
[2017-06-21] MEDS: RITONAVIR 100 MG TABLET PO SCH (07:52)
[2017-06-21] MEDS: PRENATAL VITAMINS W/ FOLIC ACID TABLET (FP) PO SCH (10:19)
[2017-06-21] MEDS: NICOTINE 14 MG/24 HOURS TOPICAL PATCH TD SCH (10:19)
[2017-06-21] MEDS: HYDROCORTISONE 1% TOPICAL CREAM 30 GM TUBE TP SCH ×4 (10:20→21:22)
[2017-06-21] MEDS: THIAMINE HCL 100 MG TABLET (FP) PO SCH (21:21)
[2017-06-21] MEDS: MIRTAZAPINE 30 MG TABLET (FP) PO SCH (21:21)
[2017-06-22] MEDS ORDERED: METHADONE HCL 5 MG TABLET ONE (03:25)
[2017-06-22] MEDS ORDERED: METHADONE HCL 10 MG TABLET ONE (03:25)
[2017-06-22] MEDS ORDERED: METHADONE HCL 40 MG DISPERSABLE TABLET ONE (03:26)
[2017-06-22] MEDS: DOCUSATE SODIUM 100 MG CAPSULE (FP) PO SCH ×3 (06:40→21:26)
[2017-06-22] MEDS: METHADONE 40 MG, METHADONE 10 MG, METHADONE 5 MG PO SCH (06:40)
[2017-06-22] MEDS: ATAZANAVIR SO4 300 MG CAPSULE PO SCH (07:11)
[2017-06-22] MEDS: RITONAVIR 100 MG TABLET PO SCH (07:12)
[2017-06-22] MEDS: EMTRICITABINE 200MG/TENOFOVIR 300MG PO SCH (07:12)
[2017-06-22] MEDS ORDERED: PT OWN MED DRAWER 7, Y5N ONE (08:59)
[2017-06-22] MEDS: HYDROCORTISONE 1% TOPICAL CREAM 30 GM TUBE TP SCH ×4 (10:26→21:27)
[2017-06-22] MEDS: PRENATAL VITAMINS W/ FOLIC ACID TABLET (FP) PO SCH (10:26)
[2017-06-22] MEDS: NICOTINE 14 MG/24 HOURS TOPICAL PATCH TD SCH (10:26)
[2017-06-22] MEDS: MIRTAZAPINE 30 MG TABLET (FP) PO SCH (21:26)
[2017-06-22] MEDS: THIAMINE HCL 100 MG TABLET (FP) PO SCH (21:26)
[2017-06-23] MEDS ORDERED: METHADONE HCL 5 MG TABLET ONE (03:08)
[2017-06-23] MEDS ORDERED: PT OWN MED DRAWER 7, Y5N ONE ×3 (03:09→08:17)
[2017-06-23] MEDS ORDERED: METHADONE HCL 40 MG DISPERSABLE TABLET ONE (03:09)
[2017-06-23] MEDS ORDERED: METHADONE HCL 10 MG TABLET ONE (03:09)
[2017-06-23] MEDS: METHADONE 40 MG, METHADONE 10 MG, METHADONE 5 MG PO SCH (06:22)
[2017-06-23] MEDS: DOCUSATE SODIUM 100 MG CAPSULE (FP) PO SCH ×3 (06:22→21:19)
[2017-06-23] MEDS: RITONAVIR 100 MG TABLET PO SCH (07:30)
[2017-06-23] MEDS: EMTRICITABINE 200MG/TENOFOVIR 300MG PO SCH (07:30)
[2017-06-23] MEDS: ATAZANAVIR SO4 300 MG CAPSULE PO SCH (07:30)
--- NOTE | 2017-06-23 08:03 | PN ---
[facility] Progress Note Note: twisted left ankle on the way to bath room no head injury,no fall swelling left ankle with pain and tenderness lateral malleolar area no deformity able to ambulate no pain in the foot,knee,leg or hip impression sprain of left ankle treatment ice pack motrin 400 mgs po prn for pain q 4 hrs x ray left ankle buddy bandage left ankle iin day time cane for ambulatory aid close monitoring and observation,advise patient to take time on changing position,good balance before standing and ambulate
[2017-06-23] MEDS: PRENATAL VITAMINS W/ FOLIC ACID TABLET (FP) PO SCH (10:03)
[2017-06-23] MEDS: NICOTINE 14 MG/24 HOURS TOPICAL PATCH TD SCH (10:03)
[2017-06-23] MEDS: HYDROCORTISONE 1% TOPICAL CREAM 30 GM TUBE TP SCH ×4 (10:03→21:19)
[2017-06-23] MEDS: IBUPROFEN 400 MG TABLET (FP) PO PRN (11:35)
[2017-06-23] MEDS: COLLOIDAL OATMEAL 1 BAR EACH TP PRN (11:35)
[2017-06-23] MEDS: MIRTAZAPINE 30 MG TABLET (FP) PO SCH (21:19)
[2017-06-23] MEDS: THIAMINE HCL 100 MG TABLET (FP) PO SCH (21:19)
[2017-06-24] MEDS ORDERED: METHADONE HCL 40 MG DISPERSABLE TABLET ONE (04:15)
[2017-06-24] MEDS ORDERED: METHADONE HCL 5 MG TABLET ONE (04:15)
[2017-06-24] MEDS ORDERED: METHADONE HCL 10 MG TABLET ONE (04:15)
[2017-06-24] MEDS ORDERED: PT OWN MED DRAWER 7, Y5N ONE ×3 (04:31→08:47)
[2017-06-24] MEDS: METHADONE 40 MG, METHADONE 10 MG, METHADONE 5 MG PO SCH (07:44)
[2017-06-24] MEDS: RITONAVIR 100 MG TABLET PO SCH (07:45)
[2017-06-24] MEDS: ATAZANAVIR SO4 300 MG CAPSULE PO SCH (07:45)
[2017-06-24] MEDS: EMTRICITABINE 200MG/TENOFOVIR 300MG PO SCH (07:45)
[2017-06-24] MEDS: DOCUSATE SODIUM 100 MG CAPSULE (FP) PO SCH ×3 (07:45→21:25)
[2017-06-24] MEDS: PRENATAL VITAMINS W/ FOLIC ACID TABLET (FP) PO SCH (10:24)
[2017-06-24] MEDS: NICOTINE 14 MG/24 HOURS TOPICAL PATCH TD SCH (10:24)
[2017-06-24] MEDS: HYDROCORTISONE 1% TOPICAL CREAM 30 GM TUBE TP SCH ×4 (10:25→21:26)
[2017-06-24] MEDS: MIRTAZAPINE 30 MG TABLET (FP) PO SCH (21:25)
[2017-06-24] MEDS: THIAMINE HCL 100 MG TABLET (FP) PO SCH (21:25)
[2017-06-25] MEDS ORDERED: METHADONE HCL 10 MG TABLET ONE (03:18)
[2017-06-25] MEDS ORDERED: METHADONE HCL 5 MG TABLET ONE (03:18)
[2017-06-25] MEDS ORDERED: METHADONE HCL 40 MG DISPERSABLE TABLET ONE (03:19)
[2017-06-25] MEDS ORDERED: PT OWN MED DRAWER 7, Y5N ONE ×2 (03:19→07:54)
[2017-06-25] MEDS: DOCUSATE SODIUM 100 MG CAPSULE (FP) PO SCH ×3 (06:42→21:18)
[2017-06-25] MEDS: METHADONE 40 MG, METHADONE 10 MG, METHADONE 5 MG PO SCH (06:42)
[2017-06-25] MEDS: RITONAVIR 100 MG TABLET PO SCH (07:42)
[2017-06-25] MEDS: ATAZANAVIR SO4 300 MG CAPSULE PO SCH (07:42)
[2017-06-25] MEDS: EMTRICITABINE 200MG/TENOFOVIR 300MG PO SCH (07:42)
[2017-06-25] MEDS: NICOTINE 14 MG/24 HOURS TOPICAL PATCH TD SCH (09:40)
[2017-06-25] MEDS: PRENATAL VITAMINS W/ FOLIC ACID TABLET (FP) PO SCH (09:40)
[2017-06-25] MEDS: HYDROCORTISONE 1% TOPICAL CREAM 30 GM TUBE TP SCH ×4 (09:41→21:19)
[2017-06-25] MEDS: MIRTAZAPINE 30 MG TABLET (FP) PO SCH (21:18)
[2017-06-25] MEDS: THIAMINE HCL 100 MG TABLET (FP) PO SCH (21:18)
[2017-06-26] MEDS ORDERED: METHADONE HCL 40 MG DISPERSABLE TABLET ONE (03:16)
[2017-06-26] MEDS ORDERED: METHADONE HCL 10 MG TABLET ONE (03:16)
[2017-06-26] MEDS ORDERED: METHADONE HCL 5 MG TABLET ONE (03:16)
[2017-06-26] MEDS: DOCUSATE SODIUM 100 MG CAPSULE (FP) PO SCH ×3 (06:48→21:18)
[2017-06-26] MEDS: METHADONE 40 MG, METHADONE 10 MG, METHADONE 5 MG PO SCH (06:48)
[2017-06-26] MEDS: ATAZANAVIR SO4 300 MG CAPSULE PO SCH (07:27)
[2017-06-26] MEDS: RITONAVIR 100 MG TABLET PO SCH (07:28)
[2017-06-26] MEDS: EMTRICITABINE 200MG/TENOFOVIR 300MG PO SCH (07:28)
[2017-06-26] MEDS ORDERED: PT OWN MED DRAWER 7, Y5N ONE (08:08)
[2017-06-26] MEDS: PRENATAL VITAMINS W/ FOLIC ACID TABLET (FP) PO SCH (09:56)
[2017-06-26] MEDS: NICOTINE 14 MG/24 HOURS TOPICAL PATCH TD SCH (09:56)
[2017-06-26] MEDS: HYDROCORTISONE 1% TOPICAL CREAM 30 GM TUBE TP SCH ×4 (09:57→21:18)
[2017-06-26] MEDS: MIRTAZAPINE 30 MG TABLET (FP) PO SCH (21:18)
[2017-06-26] MEDS: THIAMINE HCL 100 MG TABLET (FP) PO SCH (21:18)
[2017-06-27] MEDS ORDERED: METHADONE HCL 5 MG TABLET ONE (03:30)
[2017-06-27] MEDS ORDERED: METHADONE HCL 10 MG TABLET ONE (03:30)
[2017-06-27] MEDS ORDERED: METHADONE HCL 40 MG DISPERSABLE TABLET ONE (03:30)
[2017-06-27] MEDS: DOCUSATE SODIUM 100 MG CAPSULE (FP) PO SCH ×2 (06:18→13:40)
[2017-06-27] MEDS: METHADONE 40 MG, METHADONE 10 MG, METHADONE 5 MG PO SCH (06:18)
[2017-06-27 07:34] VITALS: BP 115/76; PULSE 64; TEMP 97.7
[2017-06-27] MEDS: ATAZANAVIR SO4 300 MG CAPSULE PO SCH (07:34)
[2017-06-27] MEDS: EMTRICITABINE 200MG/TENOFOVIR 300MG PO SCH (07:35)
[2017-06-27] MEDS: RITONAVIR 100 MG TABLET PO SCH (07:35)
[2017-06-27] MEDS: PRENATAL VITAMINS W/ FOLIC ACID TABLET (FP) PO SCH (10:23)
[2017-06-27] MEDS: NICOTINE 14 MG/24 HOURS TOPICAL PATCH TD SCH (10:23)
[2017-06-27] MEDS: HYDROCORTISONE 1% TOPICAL CREAM 30 GM TUBE TP SCH ×2 (10:23→13:40)
[2017-06-27] MEDS ORDERED: PT OWN MED DRAWER 7, Y5N ONE (15:23)
--- NOTE | 2017-06-27 15:52 | PN ---
Psychiatric Progress Note Vital Signs: Vital Signs Period Temp Pulse Resp BP Sys/Sr Pulse Ox Last 24 Hr 97.7 F 64 18-20 115/76 Date of Session: 06/27/17 Chief Complaint:: Discharge visit HPI: Opioid,Cannabis dependence comorbid with PTSD. ROS: Significant for HIV+,Hep C. Current Medications: Active Medications Generic Name Dose Route Start Last Admin Trade Name Freq PRN Reason Stop Dose Admin Acetaminophen 650 mg 05/26/17 18:37 Tylenol - PO Q4H PRN PAIN Al Hydroxide/Mg Hydroxide 30 ml 05/26/17 18:37 Mylanta Oral Suspension - PO Q6H PRN DYSPEPSIA Atazanavir 300 mg 05/27/17 12:00 06/27/17 07:34 Reyataz - PO 300 mg DAILY@0800 [facility] Administration Colloidal Oatmeal 1 applic 06/07/17 10:33 06/23/17 11:35 Aveeno Soap - TP 1 applic DAILY PRN Administration HYGEINE Diphenhydramine HCl 50 mg 05/26/17 18:37 06/02/17 21:22 Benadryl - PO 50 mg HSMR1 PRN Administration INSOMNIA Docusate Sodium 100 mg 05/30/17 14:00 06/27/17 13:40 Colace - PO Not Given TID [facility] Emtricitabine/Tenofovir 1 tab 05/27/17 12:00 06/27/17 07:35 Truvada PO 1 tab DAILY@0800 [facility] Administration Eucalyptus/Menthol/Phenol/Sorbitol 1 each 05/26/17 18:37 Cepastat Lozenge - MM Q4H PRN SORE THROAT Guaifenesin 10 ml 05/26/17 18:37 Robitussin Dm - PO Q6H PRN COUGH Hydrocortisone 1 applic 05/30/17 14:00 06/27/17 13:40 Hytone 1% Cream - TP Not Given QID [facility] Ibuprofen 400 mg 05/26/17 18:37 06/23/17 11:35 Motrin - PO 400 mg Q6H PRN Administration SEVERE PAIN Loperamide HCl 4 mg 05/26/17 18:37 Imodium - PO Q6H PRN DIARRHEA Magnesium Citrate 300 ml 05/26/17 18:37 05/29/17 09:52 Citroma - PO 300 ml Q48H PRN Administration CONSTIPATION Magnesium Hydroxide 30 ml 05/26/17 18:37 06/07/17 14:47 Milk Of Magnesia - PO 30 ml DAILY PRN Administration CONSTIPATION Methadone HCl 40 mg/ Methadone 55 mg 06/21/17 06:00 06/27/17 06:18 HCl 10 mg/ Methadone HCl 5 mg PO 55 mg DAILY@0600 [facility] Administration Mirtazapine 30 mg 05/27/17 22:00 06/26/17 21:18 Remeron - PO 30 mg HS CLARIBEL Administration Nicotine 14 mg 05/27/17 10:00 06/27/17 10:23 Nicoderm Patch - TD Not Given DAILY CL[facility]IBEL Nicotine Polacrilex 2 mg 05/26/17 18:37 Nicorette Gum - BC Q2H PRN NICOTINE REPLACEMENT RX Multivit/Folic Acid/Iron 1 tab 05/27/17 10:00 06/27/17 10:23 Vitamins (Sjr) - PO Not Given DAILY CLARIBEL Pseudoephedrine/Triprolidine 1 combo 05/26/17 18:37 Actifed - PO TID PRN NASAL CONGESTION Ritonavir 100 mg 05/27/17 12:00 06/27/17 07:35 Norvir - PO 100 mg DAILY@0800 [facility] Administration Thiamine HCl 100 mg 05/26/17 22:00 06/26/17 21:18 Vitamin B1 - PO 100 mg HS CLARIBEL Administration Current Side Effect: No Lab tests ordered: No Lab tests reviewed: Yes Provider note:: Patient completed this program today.She has met her treatment goals and will continue to address her issues on outpatient basis at her [facility].Patient identifies areas of difficulties and behaviors which contribute to relapse.supportive therapy provided focusing on relapse prevention,coping skills ,support utilization has been discussed to maintain recovery. Patient is stable for discharge today. Total face to face time:: 30 Mental Status Exam - Mental Status Exam Alert and Oriented to: Time, Place, Person Cognitive Function: Grossly Intact Patient Appearance: Well Groomed Mood: Euthymic Affect: Appropriate, Mood Congruent Patient Behavior: Cooperative Speech Pattern: Clear Voice Loudness: Normal Thought Process: Goal Oriented Thought Disorder: Not Present Hallucinations: Denies Suicidal Ideation: Denies Homicidal Ideation: Denies Insight/Judgement: Fair Sleep: Fair Appetite: Fair Muscle strength/Tone: Normal Gait/Station: Normal Psychiatric Treatment Plan - Problem List (1) Cannabis dependence, uncomplicated Current Visit: Yes (2) Nicotine dependence Current Visit: Yes Qualifiers: Nicotine product type: cigarettes Substance use status: in withdrawal Qualified Code(s): F17.213 - Nicotine dependence, cigarettes, with withdrawal; F17.213 - Nicotine dependence, cigarettes, with withdrawal (3) HIV (human immunodeficiency virus infection) Current Visit: Yes (4) Methadone maintenance therapy patient Current Visit: Yes Comment: 50 MG VERIFICATION PENDING (5) Hepatitis C carrier Current Visit: Yes (6) Positive PPD, treated Current Visit: Yes (7) Opioid dependence Current Visit: Yes (8) PTSD (post-traumatic stress disorder) Current Visit: Yes
== END 2017-06-27 16:55 | disposition home or self-care (01) | DRG 772 ==
LOC: YASAS 17:13 → Y3E 17:57
PROVIDERS: ADMIT Psychiatry & Neurology Psychiatry; ATTEND Psychiatry & Neurology Psychiatry
PROC: HZ42ZZZ Group Counseling for Substance Abuse Treatment, Cognitive-Behavioral (ICD-10-PCS; principal; 2017-05-26)
DX: F11.20 Opioid dependence, uncomplicated (principal); F12.20 Cannabis dependence, uncomplicated; F17.213 Nicotine dependence, cigarettes, with withdrawal; Z21 Asymptomatic human immunodeficiency virus [HIV] infection status; F43.10 Post-traumatic stress disorder, unspecified; B18.2 Chronic viral hepatitis C; R76.11 Nonspecific reaction to tuberculin skin test without active tuberculosis; E66.9 Obesity, unspecified; Z68.37 Body mass index [BMI] 37.0-37.9, adult; S93.402A Sprain of unspecified ligament of left ankle, initial encounter; X50.0XXA Overexertion from strenuous movement or load, initial encounter; Y93.01 Activity, walking, marching and hiking; Y92.230 Patient room in hospital as the place of occurrence of the external cause; R10.9 Unspecified abdominal pain; Z91.5 Personal history of self-harm
CPT/HCPCS: 36415; 71020-TC; 73610-TC-LT; 74000-TC; 80053; 81003; 81015; 85027; 86593; 87086; 93005; 93010